=== PATIENT | female | born 1965 | race Caucasian/White ===

== ENCOUNTER 2016-07-18 03:29 | Emergency (ER) | payer MEDICARE, OTHER ==
[2016-07-18 03:21] LABS: PARTIAL THROMBO TIME 25.9 SEC (22.5-37.2)
[2016-07-18 03:22] LABS: INTERNATIONAL NORMAL RATI 0.9 UNITS (-)
[~2016-07-18 03:29] MED LIST: AMLODIPINE PO; LEXAPRO5 MG PO; LYRICA75 PO; MOBIC15 MG PO; NORCO1 TAB PO; PRIN20 PO; PROAIR HFA INH; TRAZ50 PO
[2016-07-18 03:38] LABS: A/G RATIO 1.4 (0.7-1.9); ALBUMIN 3.7 G/DL (3.5-5.0); ALKALINE PHOSPHATASE 86 U/L (45-117); CALCIUM, SERUM 8.7 MG/DL (8.5-10.4); CHLORIDE, SERUM 108 MMOL/L (96-112); CO2 (CARBON DIOXIDE) 27 MMOL/L (24-34); CREATININE 0.88 MG/DL (0.55-1.02); GFR AFRICAN AMERICAN 88 ML/MIN (>=60); GFR NON AFRICAN AMERICAN 76 ML/MIN (>=60); GLOBULIN 2.7 G/DL (2.5-4.1); GLUCOSE, SERUM 113 MG/DL (60-99); POTASSIUM, SERUM 4.1 MMOL/L (3.5-5.3); SGOT(AST) 13 U/L (5-40); SGPT(ALT) 20 U/L (5-65); SODIUM, SERUM 145 MMOL/L (135-148); TOTAL BILIRUBIN 0.2 MG/DL (0-1.2); TOTAL PROTEIN 6.4 G/DL (6.0-8.5)
[2016-07-18 03:43] LABS: BUN (BLOOD UREA NITROGEN) 20 MG/DL (6-23)
[2016-07-18 03:45] LABS: BASOPHILS 0.2 %; BASOPHILS ABSOLUTE 0.04 10/3/uL (0.0-0.16); EOSINOPHILS 0.4 %; EOSINOPHILS ABSOLUTE 0.08 10/3/uL (0.0-0.53); ER CBC TAT 0 Hrs 37 Mins; HEMATOCRIT 35.5 % (36.0-48.0); HEMOGLOBIN 11.9 g/dL (12.0-16.0); IMMATURE GRANULOCYTES 0.1 %; IMMATURE GRANULOCYTES ABSOLUTE 0.03 10/3/uL (0.0-0.11); LYMPHOCYTES 66.1 %; LYMPHOCYTES ABSOLUTE 13.23 10/3/uL (0.67-4.30); MANUAL DIFF NO %; MEAN CORPUS HGB CONC 33.5 g/dL (32.0-36.0); MEAN CORPUSCULAR HEMOGLOB 31.8 pg (26.0-34.0); MEAN CORPUSCULAR VOLUME 94.9 fL (80-100); MEAN PLATELET VOLUME 9.7 fL (9.2-13.0); MONOCYTES 2.5 %; NEUTROPHILS 30.7 %; NEUTROPHILS ABSOLUTE 6.14 10/3/uL (2.02-8.40); PLATELET COUNT 264 10/3/uL (150-400); RBC DISTRIBUTION WIDTH 13.9 % (12.0-16.0); RED CELL COUNT 3.74 10/6/uL (4.0-5.6)
[2016-07-18 04:22] LABS: BAND NEUTROPHILS 2 %; EOSINOPHILS 2 %; ER DIFF TAT 1 Hrs 14 Mins; LYMPHOCYTES 56 %; MONOCYTES 1 %; SEGMENTED NEUTROPHIL (0) 39 %; TOTAL NUCLEATED CELLS 100
[2016-07-18 04:23] LABS: RBC MORPHOLOGY NORM (NORMAL)
== END 2016-07-18 05:10 | disposition home or self-care (01) ==
LOC: ER 03:29
PROVIDERS: Nurse Practitioner Acute Care
DX: R10.11 Right upper quadrant pain (principal); I10 Essential (primary) hypertension; F17.200 Nicotine dependence, unspecified, uncomplicated; Z85.6 Personal history of leukemia; Z88.8 Allergy status to other drugs, medicaments and biological substances; Z79.899 Other long term (current) drug therapy
CPT/HCPCS: 71010; 74176; 80053; 83605; 83690; 85025; 85610; 85730; 96374; 99284; J1170; J2405